=== PATIENT | female | born 1945 | race African-American/Black ===

== ENCOUNTER 2022-01-04 20:50 | Emergency (ER) | payer MEDICARE, OTHER, SELFPAY ==
--- NOTE | ~2022-01-04 | XR_ITS ---
EXAMINATION: XR humerus RT INDICATION: Right arm pain, dog bite TECHNIQUE: Two views of the right humerus are obtained. COMPARISON: None available FINDINGS: There is no fracture, dislocation, or subluxation. 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 The soft tissues are unremarkable. IMPRESSION: 1. No acute osseous abnormality. Reviewed, dictated and finalized at location A.
--- NOTE | ~2022-01-04 | XR_ITS ---
EXAMINATION: XR elbow LT min 3V DATE: 01/04/2022 22:07 INDICATION: Left elbow pain, dog bite TECHNIQUE: Anteroposterior, two oblique and lateral views of the left elbow were obtained. COMPARISON: None. FINDINGS: Alignment is normal. No fracture or joint effusion. Joint spaces are normal. Soft tissues are unremarkable. IMPRESSION: 1. No acute osseous abnormality. Reviewed, dictated and finalized at location A.
[2022-01-04 21:22] VITALS: BP 158/78; PULSE 79; RESP 18; TEMP 36.3; O2SAT 100
--- NOTE | 2022-01-04 21:55 | ED.WOUNDLAC ---
HPI - Wound/Laceration General Chief Complaint: Wound/Laceration <Shaye Mclean PA-C - Last Filed: 01/04/22 23:27> Stated Complaint: dog scratch <OTTO Guzmán Last Filed: 01/04/22 23:27> Time Seen by Provider: 01/04/22 21:29 <OTTO Guzmán Last Filed: 01/04/22 23:27> Source: patient <OTTO Guzmán Last Filed: 01/04/22 23:27> Mode of arrival: ambulatory <OTTO Guzmán Last Filed: 01/04/22 23:27> Limitations: no limitations <OTTO Guzmán Last Filed: 01/04/22 23:27> History of Present Illness HPI narrative: This is a 76 year old female that presents to the ER for dog bite sustained earlier today. Reports her neighbor's dog bit her right upper arm and left elbow. The dog is up to date on its vaccinations. She is not up to date on her tetanus vaccine. Denies fever or erythema. <OTTO Guzmán Last Filed: 01/04/22 23:27> Related Data Allergies/Adverse Reactions: Allergies Allergy/AdvReac Type Severity Reaction Status Date / Time No Known Allergies Allergy Verified 01/04/22 21:25 <OTTO Guzmán Last Filed: 01/04/22 23:27> Review of Systems Review of Systems: CONSTITUTIONAL: Denies fever SKIN: Reports dog bite <OTTO Guzmán Last Filed: 01/04/22 23:27> All systems reviewed & are unremarkable except as noted in HPI and below <OTTO Guzmán Last Filed: 01/04/22 23:27> [facility] Past Medical History Medical History: Medical History (Updated 01/05/22 @ 00:00 by Anisha Prince) History of gastroesophageal reflux (GERD) History of hyperlipidemia <OTTO Guzmán Last Filed: 01/04/22 23:27> Social History Social History: Social History (Updated 01/04/22 @ 21:57 by Shaye Mclean PA-C) Smoking status: Never smoker <Shaye Mclean PA-C - Last Filed: 01/04/22 23:27> Exam Narrative: GENERAL: Well-appearing, well-nourished, and in no acute distress. HEAD: Normocephalic, atraumatic. EYES: EOMI. EXTREMITIES: Normal range of motion. No edema. Bruising to the right upper arm with superficial abrasion. Left elbow with superficial abrasion SKIN: Warm, dry, no rash. NEURO: No focal deficits. Alert and oriented x3. PSYCH: Normal mood and affect <Shaye Mclean PA-C - Last Filed: 01/04/22 23:27> Course CNC MACHINE PROGRAMMER/PA Physician Supervision For this patient encounter, I reviewed the CNC MACHINE PROGRAMMER or PA documentation, treatment plan, and medical decision making <Elgin Thomas MD - Last Filed: 01/05/22 00:23> Vital Signs Vital signs: Vital Signs Temperature 97.3 F L 01/04/22 21:22 Pulse Rate 79 01/04/22 21:22 Respiratory Rate 18 01/04/22 21:22 Blood Pressure 158/78 H 01/04/22 21:22 Pulse Oximetry 100 01/04/22 21:22 Temperature 97.3 F L 01/04/22 21:22 Pulse Rate 79 01/04/22 21:22 Respiratory Rate 18 01/04/22 21:22 Blood Pressure 158/78 H 01/04/22 21:22 Pulse Oximetry 100 01/04/22 21:22 <Shaye Mclean PA-C - Last Filed: 01/04/22 23:27> Vital Signs Temperature 97.3 F L 01/04/22 21:22 Pulse Rate 79 01/04/22 21:22 Respiratory Rate 18 01/04/22 21:22 Blood Pressure 158/78 H 01/04/22 21:22 Pulse Oximetry 100 01/04/22 21:22 Temperature 97.3 F L 01/04/22 21:22 Pulse Rate 79 01/04/22 21:22 Respiratory Rate 18 01/04/22 21:22 Blood Pressure 158/78 H 01/04/22 21:22 Pulse Oximetry 100 01/04/22 21:22 <Elgin Thomas MD - Last Filed: 01/05/22 00:23> MDM - Wound/Laceration [facility] Narrative Medical decision making narrative: Patient presents to the emergency department for dog bite to the bilateral arms sustained earlier today. Bruising and superficial abrasions noted. X-rays are without acute abnormalities. Patient's wounds were cleansed and covered with antibiotic ointment. She will be started on oral antibiotic. She was updated on tetanus. She was educated on wound care. She is t
[2022-01-04] MEDS: TETANUS,DIPHTHERIA,AC PERTUSSIS ADULT (0.5 ML) BOOSTRIX IM (22:08)
[2022-01-04] MEDS: AMOXICILLIN/CLAVULANATE K 875-125 MG TAB 1 TABLET PO (22:09)
== END 2022-01-04 23:52 | disposition home or self-care (01) ==
PROVIDERS: Emergency Provider Emergency Medicine
DX: S41.151A Open bite of right upper arm, initial encounter (principal); S51.052A Open bite, left elbow, initial encounter; K21.9 Gastro-esophageal reflux disease without esophagitis; E78.5 Hyperlipidemia, unspecified; Z23 Encounter for immunization; W54.0XXA Bitten by dog, initial encounter
CPT/HCPCS: 73060; 73080; 90471; 90715; 99283; A9270

== ENCOUNTER 2022-05-15 09:45 | Outpatient (RCR) | payer MEDICARE, OTHER, SELFPAY ==
[2022-04-03 08:49] VITALS: BP_SYST 100; BP_SYST 160
--- NOTE | 2022-04-03 09:50 | PTOPEVAL ---
PHYSICAL THERAPY INITIAL EVALUATION Thank you for referring Bryan Serrano to [facility].? The patient is scheduled to be seen for therapy? 2x/week for 4 weeks. Please review, sign, date and return this plan of care KIRK. I agree with and certify that the following plan of care is medically necessary. Referring Physician Date Attending Provider: Ciaran Cano DO *PT Outpatient Evaluation Start: 04/03/22 Evaluation Information Diagnosis R shoulder pain Onset 1 month Subjective Information Pt states she has had problems Query Text:As Reported By Patient/ with both shoulders in the Family past. She states she was cleaning a shower and was doing a lot of overhead reaching, it started getting sore the next day and has been hurting since. She states she has difficulty reach the top two shelves of her cabinet. She states sleeping is the hardest part. Pain Assessment Right Shoulder(s) Reported Pain Level 2 Pain Description Aching Pain Frequency Acute,Intermittent Lowest Pain Intensity 0 Greatest Pain Intensity 6 Pain Aggravating Factors Lifting Other Pain Aggravating Factors sleeping Upper Extremity Range of Motion Scapular/ Shoulder Range of Motion Right Shoulder Flexion - Active 116 Shoulder Flexion - Passive 152 Shoulder Abduction - Active 90 Shoulder Abduction - Passive 100 Shoulder Medial Rotation - Passive 42 Shoulder Medial Rotation - Active T3 Query Text:Reach Behind the Back Shoulder Lateral Rotation - Passive 30 Shoulder Lateral Rotation - Active T8 Query Text:Reach Behind the Head Scapular/Shoulder Range of Motion rotation measured in 90 deg of Comments abduction Left Shoulder Flexion - Active 145 Shoulder Flexion - Passive 152 Shoulder Abduction - Active 148 Shoulder Abduction - Passive 160 Shoulder Medial Rotation - Passive 70 Shoulder Medial Rotation - Active T6 Query Text:Reach Behind the Back Shoulder Lateral Rotation - Passive 60 Shoulder Lateral Rotation - Active T4 Query Text:Reach Behind the Head Upper Extremity Muscle Strength Testing Scapular/Shoulder Right Shoulder Flexion Strength 3+ Fair + Shoulder Abduction Strength 3+ Fair + Shoulder Medial Rotation Strength 4 Good Shoulder Lateral Rotation Strength 3+ Fair + Left Shoulder Flexion Strength 4+ Good + Shoulder Abduction Strength 4 Good Shoulder Medial Rotation Strength 4+ Good + Shoulder Lateral R
[2022-04-29 11:04] VITALS: BP_SYST 155; BP_SYST 160
--- NOTE | 2022-04-29 15:17 | PTOPPROG ---
Evaluation Information Assessment Status Progress Diagnosis R shoulder pain Subjective Information pt states her motion has improved a lot. She states she is still a little tight but overall is doing really well. She reports her pain is well controlled and she has began to try laying on her R shoulder, she was able to do this for 10 mins this morning. Pt reports excellent compliance with her HEP. Pt reports 80% improvement in overall symptoms. Assessment PT Clinical Summary Bryan presents to therapy today for her progress report following 6 visits of therapy to treat her R shoulder pain. Today she demonstrates improvements in her active ROM and is now WFL. She continues to have decreased strength in all directions when compared to her uninvolved side. Patients home exercise program was updated today however she continues to require multiple cues to limit substitutions and for proper muscle engagement. Continuation of skilled physical therapy services are indicated, however pt is leaving soon to go to [place] to see family for an unsure about of time. She will be seen for 2 more visits to reinforce exercises and to continue education, after these visits she will be discharged from skilled therapy services d/t having a travel. She was instructed to continue her HEP upon discharge and to follow up with her referring provider if her symptoms worsen. Plan of Care Interventions Manual Therapy,Neuro Re-education,Therapeutic Activities,Therapeutic Exercise PT Services Indicated Yes Treatment Frequency and Pt will be seen for 2 more visits, then will be Duration discharged These treatments will address the objective and functional deficits as defined above. The patient will be advanced safely and appropriately in order for the patient to progress towards his/her prior level of function. Additional exercises will be introduced and as well as a comprehensive home exercise program upon discharge, if needed, ?to ensure carryover of functional gains achieved in the clinic. This treatment plan has been reviewed and agreement upon by the patient.
--- NOTE | 2022-06-11 13:41 | PTOPDC ---
Assessment and note entered by Ying Centeno, PT, DPT Evaluation Information Assessment Status Discharge - Pt Not Present Diagnosis R shoulder pain Subjective Information Pt called today and states her shoulder is doing great and she no longer needs to continue therapy. She reports no pain and no limitations at this time. Assessment PT Clinical Summary Bryan has completed 9 visits of skilled therapy from 04/03/22 to 05/15/22. She will be discharged at this time. If she needs to return at a later date , she will need a new order. Plan of Care Treatment Frequency and to be discharged Duration
== END 2022-06-17 09:09 | disposition home or self-care (01) ==
LOC: ANHGOSHPT 09:45
PROVIDERS: PCP Family Medicine; Visit Provider Family Medicine
DX: M25.511 Pain in right shoulder (principal)
CPT/HCPCS: 97110; 97112; 97140; 97161